=== PATIENT | male | born 1970 | race African-American/Black ===

== ENCOUNTER 2020-07-21 05:36 | Emergency (ER) | payer SELFPAY ==
[~2020-07-21] VITALS: Ht 190.5 cm; Wt 104.0 kg
--- NOTE | 2020-07-21 06:31 | PHYS DOC ---
Past Medical History Past Medical History: No Pertinent History Past Surgical History: No Surgical History Smoking Status: Never Smoker Alcohol Use: Occasionally General Adult EDM: Chief Complaint: BACK PAIN - NO INJURY HPI: HPI: 49-year-old male who denies any significant past medical history presents the ED with complaints of midline upper back pain described as nonradiating and pressure-like for the past 3 days. Patient states he woke up morning with this pain. Some relief with Advil but states pain is worsening. Cannot recall any trauma or increased physical activity/heavy lifting or inciting event to the back. No recent surgeries, procedures or hospitalizations. Denies any tobacco, daily alcohol abuse or cocaine abuse. No family history of CAD/ACS, sudden under the age of 50, connective tissue disorder or aortic disease. Denies any history of IV drug use, diabetes, steroids or immunocompromise state (PARISH rfs). ROS: Denies associated fever, chills, sensory or motor deficits, saddle anesthesia, urine or bowel retention or incontinence, cough, sore throat, chest pressure heaviness or tightness, dyspnea, hemoptysis, nausea, vomiting, diarrhea, diaphoresis, leg swelling, rash, radiculopathy, weakness, joint swelling or difficulties ambulating. Review of Systems: Review of Systems: Constitutional: Denies fever or chills. [] Eyes: Denies change in visual acuity. [] HENT: Denies nasal congestion or sore throat. [] Respiratory: Denies cough or shortness of breath. [] Cardiovascular: Denies chest pain or edema. [] GI: Denies abdominal pain, nausea, vomiting, bloody stools or diarrhea. [] : Denies dysuria. [] Musculoskeletal: Denies back pain or joint pain. [] Integument: Denies rash. [] Neurologic: Denies headache, focal weakness or sensory changes. [] Endocrine: Denies polyuria or polydipsia. [] Lymphatic: Denies swollen glands. [] Psychiatric: Denies depression or anxiety. [] Heart Score: Risk Factors: Risk Factors: DM, Current or recent (<one month) smoker, HTN, HLP, family history of CAD, obesity. Risk Scores: Score 0 - 3: 2.5% MACE over next 6 weeks - Discharge Home Score 4 - 6: 20.3% MACE over next 6 weeks - Admit for Clinical Observation Score 7 - 10: 72.7% MACE over next 6 weeks - Early Invasive Strategies Physical Exam: PE: Constitutional: Well developed, well nourished, no acute distress, non-toxic appearance. [] HENT: Normocephalic, atraumatic, bilateral external ears normal, oropharynx moist, no oral exudates, nose normal. [] Eyes: EOMI, conjunctiva normal, no discharge. [] Neck: Normal range of motion, no tenderness, supple, no stridor. [] Cardiovascular:Heart rate regular rhythm, no murmur [] Lungs & Thorax: Bilateral breath sounds clear to auscultation [] Abdomen: Bowel sounds normal, soft, no tenderness, no masses, no pulsatile masses. [] Skin: Warm, dry, no erythema, no rash. [] Back: No tenderness, no CVA tenderness, cannot worsen pain - localized to midline T3/4 Extremities: No tenderness, no cyanosis, no clubbing, ROM intact, no edema. [] Neurologic: Alert and oriented X 3, normal motor function, normal sensory function, no focal deficits noted. [] Psychologic: Affect normal, judgement normal, mood normal, very reasonable/insightful pt Current Patient Data: Vital Signs: Vital Signs Date Time Temp Pulse Resp B/P (MAP) Pulse Ox O2 Delivery O2 Flow Rate FiO2 07/21/20 06:00 98.5 64 18 149/101 (117) 98 Room Air 98.5 EKG: EKG: Sinus rhythm at 55 bpm, no axis deviation, normal intervals, T wave inversion lead III, no ST elevations or ST depressions Radiology/Procedures: Radiology/Procedures: []IMAGING REPORT Signed PATIENT: HARSHIL MITCHELL ACCOUNT: [id number] : 1970 LOCATION: ER AGE: 49 SEX: M EXAM STATUS: REG ER ORD. PHYSICIAN: GRETCHEN WHIPPLE DO REASON: back pain x3 days PROCEDURE: CHEST PA & LATERAL Study: CR CHEST PA LATERAL Indication: Back pain. Comparison: None. Findings: The cardiomediastinal silhouette is within normal limits for size. Unremarkable lucía. No pneumothorax, lobar consolidation or pleural effusion. A small ovoid nodular focus projects over the posterior right seventh rib. This is favored unlikely a pulmonary nodule given apparent density greater than the rib itself. On the lateral view several thoracic levels with discogenic arthrosis. No suspicious vertebral body height loss. Impression: No acute radiographic abnormality of the chest. Electronically signed by: SOMMER PANDEY MD (07/21/2020 7:25 AM) [id number] DICTATED and SIGNED BY: SOMMER PANDEY MD DATE: 07/21/20724 IMAGING REPORT Signed PATIENT: HARSHIL MITCHELL ACCOUNT: [id number] : 1970 LOCATION: ER AGE: 49 SEX: M EXAM STATUS: REG ER ORD. PHYSICIAN: GRETCHEN WHIPPLE DO REASON: upper back pain/pressure PROCEDURE: CT ANGIO CHEST ABD PELVIS Examination CT of the chest abdomen pelvis without and with IV contrast History: chest pain, pressure COMPARISON: None available Technique: Axial CT angiography chest abdomen pelvis were performed without and with IV contrast. Coronal and sagittal 3-D MIP reformats are performed Exposure: One or more of the following individualized dose reduction techniques were utilized for this examination: 1. Automated exposure control 2. Adjustment of the mA and/or kV according to patient size 3. Use of iterative reconstruction technique Findings: The central airways are patent. The heart size grossly appears unremarkable. No radiologically significant mediastinal lymphadenopathy. Mild bibasilar lung airspace opacities likely atelectasis or infiltrates. There is a 5.5 mm nodule identified in the left lung fissure could be a lymph node or nodule. No evidence of free air identified in the abdomen The origin of the great vessels from the arch of the aorta grossly appears unremarkable. The caliber of the aorta grossly appears unremarkable. No evidence of aortic dissection. The liver, spleen, adrenals grossly appears unremarkable. Severely atrophic right kidney. The small bowel is nondilated. Feces and gas noted in the colon The appendix is normal. Mild degenerative changes thoracolumbar spine. IMPRESSION: 1. No evidence of aortic dissection. 2. Atrophic appearing right kidney. 3. 5.5 mm nodule identified in the left lung fissure could be a lymph node or nodule. Follow-up per Fleischner Society guidelines with follow-up CT in 6-12 months. Electronically signed by: Elias Figueroa MD (07/21/2020 10:23 AM) [id number] DICTATED and SIGNED BY: ELIAS FIGUEROA MD DATE: 07/21/20 1023 IMAGING REPORT Signed PATIENT: HARSHIL MITCHELL ACCOUNT: [id number] : 1970 LOCATION: ER AGE: 49 SEX: M EXAM STATUS: REG ER ORD. PHYSICIAN: GRETCHEN WHIPPLE DO REASON: upper t2/3 pressure PROCEDURE: CT THORACIC SPINE RECONSTRUCT Examination: CT thoracic spine reconstructed images HISTORY: History of upper T2, T3 pressure COMPARISON: None available TECHNIQUE: Axial CT images of the thoracic spine performed with coronal and sagittal reformats obtained from CT angiography images. Exposure: One or more of the following individualized dose reduction techniques were utilized for this examination: 1. Automated exposure control 2. Adjustment of the mA and/or kV according to patient size 3. Use of iterative reconstruction technique FINDINGS: The alignment of the thoracic vertebral bodies grossly appears unremarkable. The bilateral facets are well aligned. Mild intervertebral disc height loss identified in thoracic spine throughout likely high-grade the IMPRESSION: 1. Mild degenerative thoracic spine. Electronically signed by: Elias Figueroa MD (07/21/2020 10:39 AM) [id number] DICTATED and SIGNED BY: ELIAS FIGUEROA MD DATE: 07/21/20 1039 Course & Med Decision Making: Course & Med Decision Making Pertinent Labs and Imaging studies reviewed. 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 Suspect upper thoracic back pain is likely musculoskeletal versus degenerative disc disease. No focal neurologic deficits or severe pain. Recommended conservative management with rice and NSAIDs -was warned about risk of PUD. Strict ED return precautions were given for syncope, severe pain or neuro deficits were given. Encouraged urgent outpatient follow-up with PMD and Ortho. Life-threatening processes were considered but are low suspicion at this time, given history and physical exam. Pt was educated on all prescription medications and adverse effects. All patient's questions were answered and pt was stable at time of discharge. Differential includes aortic dissection, cauda equina syndrome, transverse myelitis, spinal cord compression, epidural abscess or hematoma, osteomyelitis, disc herniation, surgical abdomen, stable or unstable fracture, renal colic/urosepsis, musculoskeletal injury, traumatic injury, intraabdominal or pelvic bleeding, I spoken with the patient and her caregivers. I explained the patient's condition, diagnoses and treatment plan based on the information available to me at this time. I have answered the patient and her caregiver's questions and addressed any concerns. The patient and her caregivers have a good understanding of patient's diagnosis, condition and treatment plan as can be expected at this point. Vital signs have been stable. Patient's condition is stable and appropriate for discharge from the emergency department. Patient will pursue further outpatient evaluation with primary care physician or other designated or consulting physician as outlined in the discharge instructions. The patient and/or caregivers are agreeable to this plan of care and follow-up instructions have been explained in detail. The patient and/or caregivers have received these instructions in written form and have expressed an understanding of the discharge instructions. The patient and/or caregivers are aware that any significant change of condition or worsening of symptoms should prompt immediate return to this or the closest emergency department or call to 911. Kristen Disclaimer: Kristen Disclaimer: This electronic medical record was generated, in whole or in part, using a voice recognition dictation system. Departure Departure Impression: Primary Impression: Thoracic back pain Additional Impression: DDD (degenerative disc disease), thoracic Disposition: 01 HOME, SELF-CARE Condition: STABLE Referrals: NO PCP (PCP) Patient Instructions: Back Pain, Adult, Degenerative Disk Disease Additional Instructions: Jatin Fang MD Orthopaedic Surgery Address: [address] [place] [address] Scripts Naproxen (NAPROSYN) 500 Mg Tablet 1 TAB PO BID for pain, #20 TAB Prov: GRETCHEN WHIPPLE DO 07/21/20 Justicifation of Admission Dx: Justifications for Admission: Justification of Admission Dx: N/A GRETCHEN WHIPPLE DO Jul 21, 2020 06:31
[2020-07-21 07:17] LABS: CALCIUM 8.9 mg/dL (8.5-10.1); GFR 95.3
[2020-07-21 07:23] LABS: ALBUMIN 3.6 g/dL (3.4-5.0); TOTAL BILIRUBIN 0.5 mg/dL (0.2-1.0); TOTAL PROTEIN 7.3 g/dL (6.4-8.2)
--- NOTE | 2020-07-21 07:28 | RAD ---
Study: CR CHEST PA LATERAL Indication: Back pain. Comparison: None. Findings: The cardiomediastinal silhouette is within normal limits for size. Unremarkable lucía. No pneumothorax, lobar consolidation or pleural effusion. A small ovoid nodular focus projects over the posterior right seventh rib. This is favored unlikely a pulmonary nodule given apparent density greater than the rib itself. On the lateral view several thoracic levels with discogenic arthrosis. No suspicious vertebral body height loss. Impression: No acute radiographic abnormality of the chest. Electronically signed by: SOMMER PANDEY MD (07/21/2020 7:25 AM) [id number]
[2020-07-21 07:44] LABS: BASO % 1 % (0-3); EOS # 0.3 x10^3/uL (0.0-0.7); EOS % 3 % (0-3); HEMATOCRIT 43.7 % (39.0-53.0); HEMOGLOBIN 14.3 g/dL (13.0-17.5); LYMPH % 25 % (24-48); MEAN CORPUSCULAR HEMOGLOBIN 28 pg (25-35); MEAN CORPUSCULAR HGB CONC 33 g/dL (31-37); MEAN CORPUSCULAR VOLUME 85 fL (79-100); MONO # 0.9 x10^3/uL (0.0-1.1); MONO % 11 % (0-9); NEUT # 4.6 x10^3/uL (1.8-7.7); NEUT % 59 % (31-73); PLATELET COUNT 147 x10^3/uL (140-400); RED BLOOD COUNT 5.16 x10^6/uL (4.30-5.70); RED CELL DISTRIBUTION WIDTH 14.2 % (11.5-14.5); WHITE BLOOD COUNT 7.7 x10^3/uL (4.0-11.0)
[2020-07-21] MEDS ORDERED: MORPHINE SULFATE 10 MG/ML VIAL. IV ONE (08:30)
[2020-07-21] MEDS ORDERED: LIDOCAINE (700MG/PATCH) PATCH. TD SCH (09:00)
[2020-07-21] MEDS ORDERED: CONTRAST GIVEN. MC PRN (09:15)
[2020-07-21] MEDS ORDERED: IOHEXOL 350 MG/ML 100 ML VIAL. IV ONE (09:15)
--- NOTE | 2020-07-21 10:26 | RAD ---
Examination CT of the chest abdomen pelvis without and with IV contrast History: chest pain, pressure COMPARISON: None available Technique: Axial CT angiography chest abdomen pelvis were performed without and with IV contrast. Coronal and sagittal 3-D MIP reformats are performed Exposure: One or more of the following individualized dose reduction techniques were utilized for this examination: 1. Automated exposure control 2. Adjustment of the mA and/or kV according to patient size 3. Use of iterative reconstruction technique Findings: The central airways are patent. The heart size grossly appears unremarkable. No radiologically significant mediastinal lymphadenopathy. Mild bibasilar lung airspace opacities likely atelectasis or infiltrates. There is a 5.5 mm nodule identified in the left lung fissure could be a lymph node or nodule. No evidence of free air identified in the abdomen The origin of the great vessels from the arch of the aorta grossly appears unremarkable. The caliber of the aorta grossly appears unremarkable. No evidence of aortic dissection. The liver, spleen, adrenals grossly appears unremarkable. Severely atrophic right kidney. The small bowel is nondilated. Feces and gas noted in the colon The appendix is normal. Mild degenerative changes thoracolumbar spine. IMPRESSION: 1. No evidence of aortic dissection. 2. Atrophic appearing right kidney. 3. 5.5 mm nodule identified in the left lung fissure could be a lymph node or nodule. Follow-up per Fleischner Society guidelines with follow-up CT in 6-12 months. Electronically signed by: Elias Figueroa MD (07/21/2020 10:23 AM) [id number]
--- NOTE | 2020-07-21 10:42 | RAD ---
Examination: CT thoracic spine reconstructed images HISTORY: History of upper T2, T3 pressure COMPARISON: None available TECHNIQUE: Axial CT images of the thoracic spine performed with coronal and sagittal reformats obtained from CT angiography images. Exposure: One or more of the following individualized dose reduction techniques were utilized for this examination: 1. Automated exposure control 2. Adjustment of the mA and/or kV according to patient size 3. Use of iterative reconstruction technique FINDINGS: The alignment of the thoracic vertebral bodies grossly appears unremarkable. The bilateral facets are well aligned. Mild intervertebral disc height loss identified in thoracic spine throughout likely high-grade the IMPRESSION: 1. Mild degenerative thoracic spine. Electronically signed by: Elias Figueroa MD (07/21/2020 10:39 AM) [id number]
[2020-07-21 13:15] VITALS: BP 155/94
[2020-07-21] MEDS ORDERED: NAPR-683 PO (13:51)
--- NOTE | 2020-07-23 11:26 | EKG ---
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
== END 2020-07-21 14:14 | disposition home or self-care (01) ==
LOC: ER 05:36
DX: M51.34 Other intervertebral disc degeneration, thoracic region (principal)
CPT/HCPCS: 36415; 71046; 71275; 74174; 80053; 83690; 84484; 85025; 96374; 99285; J2270; Q9967; 93005